=== PATIENT | female | born 1950 | race Hispanic/Latino ===

== ENCOUNTER 2017-07-14 18:49 | Emergency (ER) | payer MEDICARE, OTHER, SELFPAY ==
[2017-07-14] MEDS ORDERED: ACETAMINOPHEN-CODEINE 300/30MG TAB ONE (20:05)
== END 2017-07-14 20:49 | disposition home or self-care (01) ==
LOC: EDH 18:49
DX: M25.551 Pain in right hip (principal); E78.5 Hyperlipidemia, unspecified; I10 Essential (primary) hypertension; M81.0 Age-related osteoporosis without current pathological fracture; Z88.2 Allergy status to sulfonamides; Z88.8 Allergy status to other drugs, medicaments and biological substances
CPT/HCPCS: 73521; 73552

== ENCOUNTER → 2018-03-23 | Outpatient (CLI) | payer OTHER | END | disposition home or self-care (01) | LOC: OIH 11:09 | PROVIDERS: ATTEND Family Medicine | DX: S22.32XA Fracture of one rib, left side, initial encounter for closed fracture (principal); M85.88 Other specified disorders of bone density and structure, other site; X58.XXXA Exposure to other specified factors, initial encounter; Y93.89 Activity, other specified; Y92.89 Other specified places as the place of occurrence of the external cause; Y99.8 Other external cause status | CPT/HCPCS: 71100 ==

== ENCOUNTER 2018-04-12 16:36 | Emergency (ER) | payer OTHER ==
[2018-04-12 18:10] LABS: BASOPHILS % (AUTO) 1.2 % (0.0-5.0); EOSINOPHILS % (AUTO) 8.1 % (0.0-8.0); HEMATOCRIT 37.3 % (36-48); LYMPHOCYTES % (AUTO) 25.5 % (21.0-51.0); MEAN CORPUSCULAR HGB CONC 32.8 g/dL (32.0-36.0); MEAN CORPUSCULAR VOLUME 85.3 fL (79-99); MONOCYTES % (AUTO) 9.8 % (3.0-13.0); NEUTROPHILS % (AUTO) 55.4 % (40.0-77.0); NUCLEATED RED BLOOD CELLS 0.1 % (0.0-0.19); PLATELET COUNT (AUTO) 419 K/uL (130-400); RED BLOOD CELL COUNT(AUTO) 4.37 MIL/uL (4.00-5.50); RED CELL DISTRIBUTION WIDTH 17.6 % (11.0-15.5); WHITE BLOOD COUNT (AUTO) 7.7 K/uL (4.8-10.8)
[2018-04-12 18:12] LABS: APPEARANCE,URINE Clear (CLEAR); BILIRUBIN,URINE Negative (NEGATIVE); COLOR,URINE Yellow (YELLOW); GLUCOSE, URINE (UA) Negative (NEGATIVE); KETONES,URINE 40 mg/dL (NEGATIVE); LEUKOCYTE ESTERASE ,URINE Trace (NEGATIVE); NITRATE,URINE Negative (NEGATIVE); OCCULT BLOOD,URINE Negative (NEGATIVE); PROTEIN,URINE Negative (NEGATIVE); UROBILINOGEN,URINE 0.2 mg/dL (0.2-1.0)
[2018-04-12] MEDS ORDERED: SODIUM CHLORIDE 0.9% 1000ML 1,000 ML IV ONE (18:16)
[2018-04-12 18:17] LABS: INR 1.09 (0.85-1.15); PARTIAL THROMBOPLASTIN TIME 34.8 SEC (26.3-35.5); PROTHROMBIN TIME 11.4 SEC (9.6-11.6)
[2018-04-12 18:20] LABS: BACTERIA,URINE Rare /HPF (None Seen); RBC,URINE None Seen /HPF (0-1); SQUAMOUS EPITHELIAL CELL,UR 0-2 /HPF (0-2); WBC,URINE 0-1 /HPF (0-1)
[2018-04-12 18:25] LABS: CARBON DIOXIDE 24 mmol/L (21-32); CHLORIDE 104 mmol/L (101-111); CREATININE 1.1 mg/dL (0.5-1.5); GLOMERULAR FILTR. RATE CALC 53 mL/min (>60); GLUCOSE,RANDOM 107 mg/dL (70-105); POTASSIUM 3.1 mmol/L (3.5-5.1); SODIUM SERUM 140 mmol/L (136-145); UREA NITROGEN, BLOOD 3 mg/dL (7-18)
[2018-04-12 18:27] LABS: ALANINE AMINOTRANSFERASE 24 U/L (12-78); ALBUMIN 2.1 g/dL (3.5-5.0); ASPARTATE AMINOTRANSFERASE 41 U/L (10-37); BILIRUBIN,TOTAL 0.6 mg/dL (0.2-1.0); CREATINE KINASE, TOTAL 23 U/L (21-232); MYOGLOBIN 26 ng/mL (10-92); TOTAL PROTEIN, SERUM 6.2 g/dL (6.0-8.3); TROPONIN I < 0.04 ng/mL (0.00-0.06)
[2018-04-12] MEDS ORDERED: LEVOFLOXACIN 500 MG TABLET ONE (22:09)
== END 2018-04-12 22:26 | disposition home or self-care (01) ==
LOC: EDH 16:36
DX: A09 Infectious gastroenteritis and colitis, unspecified (principal); E86.0 Dehydration; I10 Essential (primary) hypertension; M81.0 Age-related osteoporosis without current pathological fracture; E78.5 Hyperlipidemia, unspecified; M19.90 Unspecified osteoarthritis, unspecified site; Z88.2 Allergy status to sulfonamides; Z88.1 Allergy status to other antibiotic agents; Z88.8 Allergy status to other drugs, medicaments and biological substances; Z90.49 Acquired absence of other specified parts of digestive tract
CPT/HCPCS: 36415; 71045; 80053; 81001; 82270; 82550; 83605 ×2; 83874; 84484; 85025; 85610; 85730; 87040 ×2; 87046; 87077; 87088; 87186; 87205; 87324; 93005; 96360; 96361; 99285; J7030

== ENCOUNTER → 2019-09-24 | Outpatient (CLI) | payer OTHER, MEDICARE | END | disposition home or self-care (01) | LOC: OIH 15:51 | PROVIDERS: ATTEND Family Medicine | DX: I70.203 Unspecified atherosclerosis of native arteries of extremities, bilateral legs (principal); M19.072 Primary osteoarthritis, left ankle and foot; M85.872 Other specified disorders of bone density and structure, left ankle and foot | CPT/HCPCS: 73610; 73630 ==

== ENCOUNTER → 2020-10-10 | Outpatient (CLI) | payer OTHER, MEDICARE | END | disposition home or self-care (01) | LOC: OIH 10:45 | PROVIDERS: ATTEND Family Medicine | DX: M85.871 Other specified disorders of bone density and structure, right ankle and foot (principal); M20.11 Hallux valgus (acquired), right foot; M79.89 Other specified soft tissue disorders; I70.201 Unspecified atherosclerosis of native arteries of extremities, right leg | CPT/HCPCS: 73620 ==

== ENCOUNTER → 2022-08-22 | Outpatient (CLI) | payer OTHER, MEDICARE | END | disposition home or self-care (01) | LOC: SHCH 08:33 | PROVIDERS: ATTEND Internal Medicine Cardiovascular Disease | DX: I87.2 Venous insufficiency (chronic) (peripheral) (principal); I10 Essential (primary) hypertension | CPT/HCPCS: 93306; 93970 ==

== ENCOUNTER → 2022-12-03 | Outpatient (CLI) | payer OTHER, MEDICARE ==
[2022-12-03 12:13] LABS: BASOPHILS % (AUTO) 0.7 % (0.0-5.0); HEMATOCRIT 40.5 % (36-48); LYMPHOCYTES % (AUTO) 25.8 % (21.0-51.0); MEAN CORPUSCULAR HEMOGLOBIN 29.1 pg (27.0-33.0); MEAN CORPUSCULAR HGB CONC 31.9 g/dL (32.0-36.0); MEAN CORPUSCULAR VOLUME 91.2 fL (79-99); NEUTROPHILS % (AUTO) 64.5 % (40.0-77.0); PLATELET COUNT (AUTO) 316 K/uL (130-400); RED BLOOD CELL COUNT(AUTO) 4.44 MIL/uL (4.00-5.50); WHITE BLOOD COUNT (AUTO) 11.2 K/uL (4.8-10.8)
[2022-12-03 12:20] LABS: INR 0.95 (0.85-1.15); PROTHROMBIN TIME 10.4 SEC (9.6-11.6)
[2022-12-03 12:21] LABS: PARTIAL THROMBOPLASTIN TIME 30.4 SEC (26.3-35.5)
[2022-12-03 12:33] LABS: CREATININE 0.5 mg/dL (0.5-1.5); POTASSIUM 3.8 mmol/L (3.5-5.1)
== END | disposition home or self-care (01) ==
LOC: LAB 09:25
PROVIDERS: ATTEND Internal Medicine Cardiovascular Disease
DX: I87.1 Compression of vein (principal); I10 Essential (primary) hypertension; E78.5 Hyperlipidemia, unspecified; M79.89 Other specified soft tissue disorders; Z79.82 Long term (current) use of aspirin; Z79.899 Other long term (current) drug therapy
CPT/HCPCS: 36415; 80048; 85025; 85610; 85730

== ENCOUNTER → 2023-01-21 | Outpatient (CLI) | payer OTHER, MEDICARE ==
[2023-01-21 12:36] LABS: BASOPHILS % (AUTO) 0.9 % (0.0-5.0); EOSINOPHILS % (AUTO) 0.9 % (0.0-8.0); HEMATOCRIT 38.8 % (36-48); LYMPHOCYTES % (AUTO) 23.3 % (21.0-51.0); MEAN CORPUSCULAR HEMOGLOBIN 29.8 pg (27.0-33.0); MEAN CORPUSCULAR HGB CONC 32.2 g/dL (32.0-36.0); MEAN CORPUSCULAR VOLUME 92.4 fL (79-99); MONOCYTES % (AUTO) 8.2 % (3.0-13.0); NEUTROPHILS % (AUTO) 65.8 % (40.0-77.0); PLATELET COUNT (AUTO) 313 K/uL (130-400); RED CELL DISTRIBUTION WIDTH 15.2 % (11.0-15.5); WHITE BLOOD COUNT (AUTO) 10.5 K/uL (4.8-10.8)
[2023-01-21 12:44] LABS: INR 0.93 (0.85-1.15); PROTHROMBIN TIME 10.4 SEC (9.6-11.6)
[2023-01-21 12:46] LABS: PARTIAL THROMBOPLASTIN TIME 29.8 SEC (26.3-35.5)
[2023-01-21 12:58] LABS: CREATININE 0.5 mg/dL (0.5-1.5); POTASSIUM 3.9 mmol/L (3.5-5.1)
== END | disposition home or self-care (01) ==
LOC: LAB 11:17
PROVIDERS: ATTEND Internal Medicine Cardiovascular Disease
DX: I87.1 Compression of vein (principal); I87.2 Venous insufficiency (chronic) (peripheral); M79.89 Other specified soft tissue disorders
CPT/HCPCS: 36415; 80048; 85025; 85610; 85730

== ENCOUNTER 2023-02-15 19:05 | Emergency (ER) | payer OTHER, MEDICARE ==
[~2023-02-15] VITALS: Ht 149.9 cm; Wt 68.0 kg
[2023-02-15] MEDS ORDERED: HYDROMORPHONE 0.5 MG SYG (0.5MG/0.5ML) ONE (19:43)
[2023-02-15 19:56] LABS: BASOPHILS # (AUTO) 0.12 K/uL (0.00-0.20); BASOPHILS % (AUTO) 0.9 % (0.0-5.0); EOSINOPHILS # (AUTO) 0.15 K/uL (0.00-0.70); EOSINOPHILS % (AUTO) 1.1 % (0.0-8.0); HEMATOCRIT 36.4 % (36-48); IMMATURE GRANULOCYTE ABSOLUTE 0.25 K/uL (0-1); LYMPHOCYTES # (AUTO) 3.5 K/uL (1.0-4.8); LYMPHOCYTES % (AUTO) 25.3 % (21.0-51.0); MEAN CORPUSCULAR HEMOGLOBIN 29.8 pg (27.0-33.0); MEAN CORPUSCULAR HGB CONC 32.7 g/dL (32.0-36.0); MEAN CORPUSCULAR VOLUME 91.2 fL (79-99); MONOCYTES # (AUTO) 1.1 K/uL (0.1-1.0); MONOCYTES % (AUTO) 8.3 % (3.0-13.0); NEUTROPHILS # (AUTO) 8.5 K/uL (1.8-7.7); NEUTROPHILS % (AUTO) 62.6 % (40.0-77.0); PLATELET COUNT (AUTO) 351 K/uL (130-400); RED BLOOD CELL COUNT(AUTO) 3.99 MIL/uL (4.00-5.50); WHITE BLOOD COUNT (AUTO) 13.6 K/uL (4.8-10.8)
[2023-02-15] MEDS ORDERED: HYDROMORPHONE 0.5 MG SYG (0.5MG/0.5ML) IVP ONE (20:00)
[2023-02-15] MEDS ORDERED: METO-408 PO (20:10)
[2023-02-15] MEDS ORDERED: ATOR40TA71 PO (20:10)
[2023-02-15] MEDS ORDERED: FOLI1 PO (20:10)
[2023-02-15] MEDS ORDERED: ASPI-1114 PO (20:10)
[2023-02-15] MEDS ORDERED: CYAN1TAB69 PO (20:10)
[2023-02-15] MEDS ORDERED: CLOP-31 PO (20:10)
[2023-02-15] MEDS ORDERED: LISI20TA24 PO (20:10)
[2023-02-15] MEDS ORDERED: HYDR30EM TP (20:10)
[2023-02-15 20:17] LABS: INR < 0.93 (0.85-1.15); PROTHROMBIN TIME 10.7 SEC (9.6-11.6)
[2023-02-15 20:18] LABS: PARTIAL THROMBOPLASTIN TIME 27.9 SEC (26.3-35.5)
[2023-02-15 20:24] LABS: CREATININE 0.7 mg/dL (0.5-1.5); POTASSIUM 3.7 mmol/L (3.5-5.1)
[2023-02-15 20:29] LABS: ALBUMIN 3.3 g/dL (3.5-5.0); TOTAL PROTEIN, SERUM 6.8 g/dL (6.0-8.3)
[2023-02-15] MEDS ORDERED: 0.9%NACL 1000ML 1,000 ML IV ONE (22:00)
[2023-02-15 22:15] VITALS: BP 123/58; PULSE 74; RESP 16; O2SAT 98
[2023-02-15] MEDS ORDERED: IBUP-2076 PO (23:00)
== END 2023-02-15 23:17 | disposition home or self-care (01) ==
LOC: EDH 19:05
DX: S90.32XA Contusion of left foot, initial encounter (principal); E78.00 Pure hypercholesterolemia, unspecified; I10 Essential (primary) hypertension; M19.90 Unspecified osteoarthritis, unspecified site; Z79.02 Long term (current) use of antithrombotics/antiplatelets; Z79.82 Long term (current) use of aspirin; Z79.899 Other long term (current) drug therapy; Z88.0 Allergy status to penicillin; Z88.2 Allergy status to sulfonamides; X58.XXXA Exposure to other specified factors, initial encounter; Y93.89 Activity, other specified; Y99.8 Other external cause status; Y92.89 Other specified places as the place of occurrence of the external cause
CPT/HCPCS: 99285; 93970; 93925; 96374; 80053; 85025; 85610; 85730; 87040 ×2; 83605; 36415; J1170

== ENCOUNTER → 2023-09-09 | Outpatient (CLI) | payer OTHER, MEDICARE | END | disposition home or self-care (01) | LOC: SHCH 13:03 | PROVIDERS: ATTEND Internal Medicine Cardiovascular Disease | DX: I70.201 Unspecified atherosclerosis of native arteries of extremities, right leg (principal); I87.2 Venous insufficiency (chronic) (peripheral); I87.1 Compression of vein | CPT/HCPCS: 93925; 93970 ==

== ENCOUNTER → 2024-03-30 | Outpatient (CLI) | payer OTHER, MEDICARE ==
[2024-03-30 12:23] LABS: BASOPHILS # (AUTO) 0.08 K/uL (0.00-0.20); BASOPHILS % (AUTO) 0.7 % (0.0-5.0); EOSINOPHILS # (AUTO) 0.13 K/uL (0.00-0.70); EOSINOPHILS % (AUTO) 1.1 % (0.0-8.0); HEMATOCRIT 41.1 % (36-48); IMMATURE GRANULOCYTE ABSOLUTE 0.18 K/uL (0-1); LYMPHOCYTES # (AUTO) 2.8 K/uL (1.0-4.8); LYMPHOCYTES % (AUTO) 24.1 % (21.0-51.0); MEAN CORPUSCULAR HEMOGLOBIN 30.6 pg (27.0-33.0); MEAN CORPUSCULAR HGB CONC 33.1 g/dL (32.0-36.0); MEAN CORPUSCULAR VOLUME 92.6 fL (79-99); MONOCYTES # (AUTO) 0.9 K/uL (0.1-1.0); MONOCYTES % (AUTO) 7.9 % (3.0-13.0); NEUTROPHILS # (AUTO) 7.4 K/uL (1.8-7.7); NEUTROPHILS % (AUTO) 64.6 % (40.0-77.0); PLATELET COUNT (AUTO) 337 K/uL (130-400); RED BLOOD CELL COUNT(AUTO) 4.44 MIL/uL (4.00-5.50); RED CELL DISTRIBUTION WIDTH 14.5 % (11.0-15.5); WHITE BLOOD COUNT (AUTO) 11.5 K/uL (4.8-10.8)
[2024-03-30 12:31] LABS: CREATININE 0.6 mg/dL (0.5-1.0); POTASSIUM 3.9 mmol/L (3.5-5.1)
[2024-03-30 12:35] LABS: INR 0.96 (0.85-1.15); PROTHROMBIN TIME 10.4 SEC (9.6-11.6)
[2024-03-30 12:37] LABS: PARTIAL THROMBOPLASTIN TIME 30.2 SEC (26.3-35.5)
== END | disposition home or self-care (01) ==
LOC: LAB 10:21
PROVIDERS: ATTEND Internal Medicine Cardiovascular Disease
DX: I87.1 Compression of vein (principal); I73.9 Peripheral vascular disease, unspecified; M79.605 Pain in left leg; M79.604 Pain in right leg
CPT/HCPCS: 36415; 80048; 85025; 85610; 85730

== ENCOUNTER → 2024-06-18 | Outpatient (CLI) | payer OTHER, MEDICARE ==
--- NOTE | 2024-06-18 16:50 | HMCSR ---
APPROVED REPORT Laterality: Bilateral Indications Claudication: , PAD VELOCITY AND DOPPLER WAVEFORM ANALYSIS CASKET INSPECTOR (R) 175.7cm/sec, Biphasic, CASKET INSPECTOR (L) 186.0cm/sec, Biphasic, Prof Fem Art. (R) 83.2cm/sec, Biphasic, Prof Fem Art. (L) 107.7cm/sec, Biphasic, Fem Art Prox. (R) 122.3cm/sec, Biphasic, Fem Art Prox. (L) 135.4cm/sec, Biphasic, Fem Art Mid. (R) 133.8cm/sec, Biphasic, Fem Art Mid. (L) 174.6cm/sec, Biphasic, Fem Art Dist (R) 121.6cm/sec, Biphasic, Fem Art Dist. (L) 88.1cm/sec, Biphasic, Pop Art(AK) (R) 70.6cm/sec, Biphasic, Pop Art (AK) (L) 74.5cm/sec, Biphasic, Pop Art (Fossa)(R) 82.2cm/sec, Biphasic, Pop Art (Fossa) (L) 89.7cm/sec, Biphasic, Pop Art(BK) (R) 145.9cm/sec, Biphasic, Pop Art (BK) (L) 96.0cm/sec, Biphasic, PAR[employer]EL [employer] TRUCK DRIVER Prox. (R) 33.6cm/sec, Biphasic, PARCEL POST TRUCK DRIVER Prox. (L) 50.2cm/sec, Biphasic, PARCEL POST TRUCK DRIVER Mid. (R) 30.1cm/sec, Biphasic, PARCEL POST TRUCK DRIVER Mid. (L) 52.0cm/sec, Biphasic, PARCEL POST TRUCK DRIVER Dist. (R) 20.8cm/sec, Biphasic, PARCEL POST TRUCK DRIVER Dist. (L) 39.5cm/sec, Biphasic, Per Art Prox. (R) cm/sec, Not visualizedPer Art Prox. (L) cm/sec, Not visualized CLAY Prox. (R) 67.1cm/sec, Biphasic, CLAY Prox. (L) 53.8cm/sec, Biphasic, CLAY Mid. (R) 60.2cm/sec, Biphasic CLAY Mid. (L) 41.3cm/sec, Biphasic, CLAY Dist. (R) 78.7cm/sec, Biphasic, CLAY Dist. (L) 47.6cm/sec, Biphasic, Technologist Impression Multiphasic waveforms in the bilateral lower extremities. Right and Left Peroneal arteries not well seen . Conclusion No evidence of significant peripheral arterial disease Conclusion No evidence of significant peripheral arterial disease
--- NOTE | 2024-06-18 16:50 | HMCSR ---
APPROVED REPORT Bilateral Lower Extremity Venous Study for Venous Competence., DVT. Indications Lower Extremity Pain: Bilateral, i87.1,i87.2 Vein Imaging CFV (R): Normal flow, augmentation and compression. No evidence of DVT. 12.2mm 0.0ms of reflux. SFJ (R): Normal flow, augmentation and compression. No evidence of DVT. FEM (R): Normal flow, augmentation and compression. No evidence of DVT. POP (R): Normal flow, augmentation and compression. No evidence of DVT. DFV (R): Normal flow, augmentation and compression. No evidence of DVT. PTV (R): Normal flow, augmentation and compression. No evidence of DVT. Peroneals (R): Normal flow, augmentation and compression. No evidence of DVT. CFV (L): Normal flow, augmentation and compression. No evidence of DVT. 11.5mm 0.0ms Stent placement SFJ (L): Normal flow, augmentation and compression. No evidence of DVT. FEM (L): Normal flow, augmentation and compression. No evidence of DVT. POP (L): Normal flow, augmentation and compression. No evidence of DVT. DFV (L): Normal flow, augmentation and compression. No evidence of DVT. PTV (L): Normal flow, augmentation and compression. No evidence of DVT. Peroneals (L): Normal flow, augmentation and compression. No evidence of DVT. Technologist Impression Deep veins of the bilateral lower extremities appear patent and compressible without thrombus. Superficial venous insufficiency noted in the LGSV at thigh. RGSV junction 5.5mm 0.0ms thigh 3.3mm 0.0ms knee 1.2mm 0.0ms calf 1.2mm 0.0ms RSSV prox 4.0mm 0.0ms mid 1.1mm 0.0ms LGSV junction 6.6mm 0.0ms thigh 2.8mm 506ms knee 2.0mm 0.0ms calf 0.8mm 0.0ms LGSV junction 0.9mm 0.0ms mid 2.0mm 0.0ms Technically difficult study due to pain tolerance. Technically difficult study Conclusion Superficial venous insufficiency noted in the LGSV at thigh. Conclusion Superficial venous insufficiency noted in the LGSV at thigh.
== END | disposition home or self-care (01) ==
LOC: SHCH 13:59
PROVIDERS: ATTEND Internal Medicine Cardiovascular Disease
DX: I87.2 Venous insufficiency (chronic) (peripheral) (principal); I87.1 Compression of vein; I73.9 Peripheral vascular disease, unspecified
CPT/HCPCS: 93925; 93970